=== PATIENT | female | born 1930 | race Two or more races ===

== ENCOUNTER 2018-01-17 14:19 | Inpatient (IN) | payer MEDICARE, OTHER ==
[~2018-01-17] VITALS: Ht 157.5 cm; Wt 72.6 kg
[2018-01-17 17:10] VITALS: BP 147/81
[2018-01-17] MEDS ORDERED: Z GUARD REMEDY PASTE 57 GM TUBE TOP PRN (17:30)
[2018-01-17] MEDS ORDERED: HEPA100D33 SUBCUT (18:46)
[2018-01-17] MEDS ORDERED: POLY17PO4 PO (18:46)
[2018-01-17] MEDS ORDERED: ATOR20TA PO (18:46)
[2018-01-17] MEDS ORDERED: CEFT1FRO2 IV (18:46)
[2018-01-17] MEDS ORDERED: SENN-167 PO (18:46)
[2018-01-17] MEDS ORDERED: BISA10SU8 RC (18:46)
[2018-01-17] MEDS ORDERED: SODI1TAB3 PO (18:46)
[2018-01-17] MEDS ORDERED: BENA20TA9 PO (18:46)
[2018-01-17] MEDS ORDERED: BISA5TAB10 PO (18:46)
[2018-01-17] MEDS ORDERED: LEVE500T20 PO (18:46)
[2018-01-17] MEDS ORDERED: DOCU100T2 PO (18:46)
[2018-01-17] MEDS ORDERED: PROP10TA10 PO (18:46)
[2018-01-17] MEDS ORDERED: PANT40TA4 PO (18:46)
[2018-01-17 19:30] VITALS: BP 139/72
[2018-01-17] MEDS ORDERED: MIRALAX 17 GM POWD.PACK PO PRN (19:45)
[2018-01-17] MEDS ORDERED: SENNOSIDES 1 TABLET PO PRN (19:45)
[2018-01-17] MEDS ORDERED: BISACODYL 10 MG SUPP.RECT RC PRN (19:45)
[2018-01-17] MEDS: LEVETIRACETAM 500 MG TABLET PO SCH (21:20)
[2018-01-17] MEDS: DOCUSATE SODIUM 100 MG CAPSULE PO SCH (21:20)
[2018-01-17] MEDS: ATORVASTATIN 20 MG TABLET PO SCH (21:20)
[2018-01-17] MEDS: BENAZEPRIL HCL 10 MG TABLET PO SCH (21:42)
[2018-01-18 04:00] VITALS: BP 146/51
[2018-01-18 08:00] VITALS: BP 134/67
[2018-01-18] MEDS ORDERED: Medication Not On Formulary EA (Sodium Chloride 1 GM) PO SCH (09:00)
[2018-01-18] MEDS ORDERED: BENAZEPRIL HCL 20 MG TABLET PO SCH (09:00)
[2018-01-18] MEDS ORDERED: Medication Not On Formulary EA (Docusate Sodium 100 MG) PO SCH (09:00)
[2018-01-18] MEDS: DOCUSATE SODIUM 100 MG CAPSULE PO SCH ×2 (09:29→21:06)
[2018-01-18] MEDS: LEVETIRACETAM 500 MG TABLET PO SCH ×2 (09:29→21:06)
[2018-01-18] MEDS: SODIUM CHLORIDE 1,000 MG TABLET PO SCH ×3 (09:29→16:17)
[2018-01-18] MEDS: PANTOPRAZOLE SODIUM 40 MG TABLET.DR PO SCH (09:29)
[2018-01-18] MEDS: BENAZEPRIL HCL 10 MG TABLET PO SCH ×2 (09:29→21:07)
[2018-01-18] MEDS: CEFTRIAXONE 1 G in IV DEXTROSE 5% 50 ML IV SCH (09:40)
[2018-01-18] MEDS: ACETAMINOPHEN ES 500 MG TABLET PO PRN (11:34)
[2018-01-18 16:00] VITALS: BP 97/70
[2018-01-18 20:14] VITALS: BP 130/72
[2018-01-18] MEDS: ATORVASTATIN 20 MG TABLET PO SCH (21:06)
[2018-01-19 04:00] VITALS: BP 125/63
[2018-01-19 07:07] LABS: BASOPHILS # (AUTO) 0.1 K/uL (0.0-8.0); BASOPHILS % (AUTO) 0.9 % (0.0-2.0); EOSINOPHILS # (AUTO) 0.6 K/uL (0.0-0.7); EOSINOPHILS % (AUTO) 9.1 % (0.0-7.0); HEMATOCRIT 36.5 % (31.2-41.9); HEMOGLOBIN 12.3 g/dL (10.9-14.3); LYMPHOCYTES # (AUTO) 1.8 K/uL (20.0-40.0); LYMPHOCYTES % (AUTO) 27.7 % (20.5-51.5); MEAN CORPUSCULAR HEMOGLOBIN 28.5 uug (24.7-32.8); MEAN CORPUSCULAR HGB CONC 34 g/dL (32.3-35.6); MEAN CORPUSCULAR VOLUME 84.7 fL (75.5-95.3); MONOCYTES # (AUTO) 0.6 K/uL (2.0-10.0); MONOCYTES % (AUTO) 9.5 % (0.0-11.0); NEUTROPHILS # (AUTO) 3.3 K/uL (1.8-8.9); NEUTROPHILS % (AUTO) 52.8 % (38.5-71.5); PLATELET COUNT (AUTO) 271 K/uL (179-408); WHITE BLOOD COUNT (AUTO) 6.3 K/uL (3.8-11.8)
[2018-01-19 07:45] LABS: ALANINE AMINOTRANSFERASE 24 U/L (14-59); ALKALINE PHOSPHATASE 43 U/L (50-136); ASPARTATE AMINOTRANSFERASE 15 U/L (15-37); BILIRUBIN,TOTAL 0.4 mg/dL (0.2-1.0); CARBON DIOXIDE 29 mmol/L (21-32); CHLORIDE 96 mmol/L (98-107); CHOLESTEROL 131 mg/dL (<200); CREATININE 1.7 mg/dL (0.6-1.3); GLUCOSE 118 mg/dL (74-106); HDL CHOLESTEROL 52 mg/dL (40-60); PHOSPHOROUS 4.6 mg/dL (2.5-4.9); POTASSIUM 4.1 mmol/L (3.5-5.1); TOTAL PROTEIN, SERUM 6.7 g/dL (6.4-8.2); TRIGLYCERIDES 114 MG/DL (30-150); UREA NITROGEN, BLOOD 34 mg/dL (7-18)
[2018-01-19 08:00] VITALS: BP 142/57
[2018-01-19] MEDS: CEFTRIAXONE 1 G in IV DEXTROSE 5% 50 ML IV SCH (08:58)
[2018-01-19] MEDS: LEVETIRACETAM 500 MG TABLET PO SCH ×2 (08:59→20:56)
[2018-01-19] MEDS: BENAZEPRIL HCL 10 MG TABLET PO SCH ×2 (08:59→20:56)
[2018-01-19] MEDS: SODIUM CHLORIDE 1,000 MG TABLET PO SCH ×3 (09:00→17:37)
[2018-01-19] MEDS: DOCUSATE SODIUM 100 MG CAPSULE PO SCH ×2 (09:00→20:55)
[2018-01-19] MEDS: PANTOPRAZOLE SODIUM 40 MG TABLET.DR PO SCH (09:00)
[2018-01-19] MEDS: BISACODYL 5 MG TABLET.DR PO PRN (14:15)
[2018-01-19 16:00] VITALS: BP 127/55
[2018-01-19] MEDS: ACETAMINOPHEN ES 500 MG TABLET PO PRN (17:37)
[2018-01-19 19:30] VITALS: BP 127/79
[2018-01-19] MEDS: ATORVASTATIN 20 MG TABLET PO SCH (20:55)
[2018-01-20 04:00] VITALS: BP 132/57
[2018-01-20 08:00] VITALS: BP 123/78
[2018-01-20] MEDS: SODIUM CHLORIDE 1,000 MG TABLET PO SCH ×3 (08:58→17:40)
[2018-01-20] MEDS: DOCUSATE SODIUM 100 MG CAPSULE PO SCH ×2 (08:58→21:02)
[2018-01-20] MEDS: LEVETIRACETAM 500 MG TABLET PO SCH ×2 (08:58→21:02)
[2018-01-20] MEDS: PANTOPRAZOLE SODIUM 40 MG TABLET.DR PO SCH (08:59)
[2018-01-20] MEDS: BENAZEPRIL HCL 10 MG TABLET PO SCH ×2 (09:00→21:02)
[2018-01-20 16:00] VITALS: BP 126/70
[2018-01-20 20:28] VITALS: BP 117/59
[2018-01-20] MEDS: ATORVASTATIN 20 MG TABLET PO SCH (21:01)
[2018-01-21 06:45] VITALS: BP 143/52
[2018-01-21 08:00] VITALS: BP 134/58
[2018-01-21] MEDS: DOCUSATE SODIUM 100 MG CAPSULE PO SCH ×2 (08:43→20:55)
[2018-01-21] MEDS: LEVETIRACETAM 500 MG TABLET PO SCH ×2 (08:43→20:55)
[2018-01-21] MEDS: PANTOPRAZOLE SODIUM 40 MG TABLET.DR PO SCH (08:44)
[2018-01-21] MEDS: BENAZEPRIL HCL 10 MG TABLET PO SCH ×2 (08:44→20:56)
[2018-01-21] MEDS: SODIUM CHLORIDE 1,000 MG TABLET PO SCH ×3 (08:45→17:05)
[2018-01-21] MEDS: BISACODYL 5 MG TABLET.DR PO PRN (08:49)
[2018-01-21] MEDS: ACETAMINOPHEN ES 500 MG TABLET PO PRN (10:07)
[2018-01-21 16:42] VITALS: BP 124/63
[2018-01-21 19:41] VITALS: BP 138/78
[2018-01-21] MEDS: ATORVASTATIN 20 MG TABLET PO SCH (20:55)
[2018-01-22 05:00] VITALS: BP 140/62
[2018-01-22 07:39] VITALS: BP 162/57
[2018-01-22] MEDS: PANTOPRAZOLE SODIUM 40 MG TABLET.DR PO SCH (08:47)
[2018-01-22] MEDS: DOCUSATE SODIUM 100 MG CAPSULE PO SCH ×2 (08:47→20:52)
[2018-01-22] MEDS: LEVETIRACETAM 500 MG TABLET PO SCH ×2 (08:47→20:52)
[2018-01-22] MEDS: SODIUM CHLORIDE 1,000 MG TABLET PO SCH ×3 (08:48→16:22)
[2018-01-22] MEDS: BENAZEPRIL HCL 10 MG TABLET PO SCH ×2 (08:48→20:54)
[2018-01-22] MEDS: ACETAMINOPHEN ES 500 MG TABLET PO PRN (10:00)
[2018-01-22] MEDS ORDERED: ONDANSETRON HCL 4 MG TABLET PO PRN (10:30)
[2018-01-22 16:05] VITALS: BP 121/53
[2018-01-22 20:33] VITALS: BP 136/77
[2018-01-22] MEDS: ATORVASTATIN 20 MG TABLET PO SCH (20:52)
[2018-01-23 06:57] VITALS: BP 134/62
[2018-01-23 07:30] VITALS: BP 139/58
[2018-01-23] MEDS: DOCUSATE SODIUM 100 MG CAPSULE PO SCH ×2 (09:45→20:18)
[2018-01-23] MEDS: PANTOPRAZOLE SODIUM 40 MG TABLET.DR PO SCH (09:45)
[2018-01-23] MEDS: SODIUM CHLORIDE 1,000 MG TABLET PO SCH ×2 (09:46→17:47)
[2018-01-23] MEDS: LEVETIRACETAM 500 MG TABLET PO SCH ×2 (09:46→20:18)
[2018-01-23] MEDS: ACETAMINOPHEN ES 500 MG TABLET PO PRN (09:47)
[2018-01-23] MEDS: BENAZEPRIL HCL 10 MG TABLET PO SCH ×2 (09:47→20:53)
[2018-01-23 16:00] VITALS: BP 136/86
[2018-01-23] MEDS: ATORVASTATIN 20 MG TABLET PO SCH (20:18)
[2018-01-23 21:17] VITALS: BP 115/60
[2018-01-24 07:00] VITALS: BP 138/66
[2018-01-24 07:25] LABS: BASOPHILS # (AUTO) 0.1 K/uL (0.0-8.0); BASOPHILS % (AUTO) 1.4 % (0.0-2.0); EOSINOPHILS # (AUTO) 0.7 K/uL (0.0-0.7); HEMATOCRIT 34.1 % (31.2-41.9); HEMOGLOBIN 11.4 g/dL (10.9-14.3); LYMPHOCYTES # (AUTO) 1.6 K/uL (20.0-40.0); LYMPHOCYTES % (AUTO) 26.4 % (20.5-51.5); MEAN CORPUSCULAR HEMOGLOBIN 28.8 uug (24.7-32.8); MEAN CORPUSCULAR HGB CONC 34 g/dL (32.3-35.6); MEAN CORPUSCULAR VOLUME 86.1 fL (75.5-95.3); MONOCYTES # (AUTO) 0.5 K/uL (2.0-10.0); MONOCYTES % (AUTO) 7.6 % (0.0-11.0); NEUTROPHILS # (AUTO) 3.2 K/uL (1.8-8.9); NEUTROPHILS % (AUTO) 53.6 % (38.5-71.5); PLATELET COUNT (AUTO) 305 K/uL (179-408); RED BLOOD CELL COUNT(AUTO) 3.96 MIL/uL (3.63-4.92)
[2018-01-24 07:40] LABS: ALANINE AMINOTRANSFERASE 25 U/L (14-59); ALKALINE PHOSPHATASE 47 U/L (50-136); ASPARTATE AMINOTRANSFERASE 15 U/L (15-37); BILIRUBIN,TOTAL 0.2 mg/dL (0.2-1.0); CARBON DIOXIDE 27 mmol/L (21-32); CHLORIDE 104 mmol/L (98-107); CREATININE 1.2 mg/dL (0.6-1.3); GLUCOSE 110 mg/dL (74-106); MAGNESIUM 1.6 mg/dL (1.8-2.4); PHOSPHOROUS 3.6 mg/dL (2.5-4.9); POTASSIUM 4.2 mmol/L (3.5-5.1); TOTAL PROTEIN, SERUM 6.5 g/dL (6.4-8.2); UREA NITROGEN, BLOOD 21 mg/dL (7-18)
[2018-01-24] MEDS: BENAZEPRIL HCL 10 MG TABLET PO SCH ×2 (08:54→21:11)
[2018-01-24] MEDS: SODIUM CHLORIDE 1,000 MG TABLET PO SCH ×2 (08:55→16:52)
[2018-01-24] MEDS: PANTOPRAZOLE SODIUM 40 MG TABLET.DR PO SCH (08:55)
[2018-01-24] MEDS: LEVETIRACETAM 500 MG TABLET PO SCH ×2 (08:55→21:10)
[2018-01-24] MEDS: DOCUSATE SODIUM 100 MG CAPSULE PO SCH ×2 (08:56→21:10)
[2018-01-24] MEDS: ACETAMINOPHEN ES 500 MG TABLET PO PRN ×2 (09:05→15:45)
[2018-01-24] MEDS ORDERED: MAGNESIUM OXIDE 400 MG TABLET PO ONE (15:00)
[2018-01-24 16:00] VITALS: BP 140/80
[2018-01-24 19:30] VITALS: BP 138/73
[2018-01-24] MEDS: ATORVASTATIN 20 MG TABLET PO SCH (21:11)
[2018-01-25 04:00] VITALS: BP 146/61
[2018-01-25 08:31] LABS: BASOPHILS # (AUTO) 0.1 K/uL (0.0-8.0); BASOPHILS % (AUTO) 1.6 % (0.0-2.0); EOSINOPHILS # (AUTO) 0.6 K/uL (0.0-0.7); HEMOGLOBIN 11.5 g/dL (10.9-14.3); LYMPHOCYTES # (AUTO) 1.6 K/uL (20.0-40.0); LYMPHOCYTES % (AUTO) 26.2 % (20.5-51.5); MEAN CORPUSCULAR HEMOGLOBIN 28.9 uug (24.7-32.8); MEAN CORPUSCULAR HGB CONC 34 g/dL (32.3-35.6); MEAN CORPUSCULAR VOLUME 85.7 fL (75.5-95.3); MONOCYTES # (AUTO) 0.4 K/uL (2.0-10.0); MONOCYTES % (AUTO) 6.3 % (0.0-11.0); NEUTROPHILS # (AUTO) 3.5 K/uL (1.8-8.9); NEUTROPHILS % (AUTO) 55.9 % (38.5-71.5); PLATELET COUNT (AUTO) 307 K/uL (179-408); RED BLOOD CELL COUNT(AUTO) 3.97 MIL/uL (3.63-4.92); WHITE BLOOD COUNT (AUTO) 6.2 K/uL (3.8-11.8)
[2018-01-25 08:40] LABS: ALANINE AMINOTRANSFERASE 24 U/L (14-59); ALKALINE PHOSPHATASE 47 U/L (50-136); ASPARTATE AMINOTRANSFERASE 14 U/L (15-37); BILIRUBIN,TOTAL 0.2 mg/dL (0.2-1.0); CARBON DIOXIDE 29 mmol/L (21-32); CHLORIDE 104 mmol/L (98-107); CREATININE 1.3 mg/dL (0.6-1.3); GLUCOSE 111 mg/dL (74-106); MAGNESIUM 1.6 mg/dL (1.8-2.4); PHOSPHOROUS 3.9 mg/dL (2.5-4.9); POTASSIUM 4.2 mmol/L (3.5-5.1); TOTAL PROTEIN, SERUM 6.7 g/dL (6.4-8.2); UREA NITROGEN, BLOOD 24 mg/dL (7-18)
[2018-01-25] MEDS: DOCUSATE SODIUM 100 MG CAPSULE PO SCH ×2 (08:41→20:15)
[2018-01-25] MEDS: PANTOPRAZOLE SODIUM 40 MG TABLET.DR PO SCH (08:41)
[2018-01-25] MEDS: LEVETIRACETAM 500 MG TABLET PO SCH ×2 (08:41→20:16)
[2018-01-25] MEDS: SODIUM CHLORIDE 1,000 MG TABLET PO SCH ×2 (08:42→16:46)
[2018-01-25] MEDS: BENAZEPRIL HCL 10 MG TABLET PO SCH ×2 (08:46→20:16)
[2018-01-25 09:59] VITALS: BP 136/68
[2018-01-25] MEDS ORDERED: MAGNESIUM OXIDE 400 MG TABLET PO ONE (11:15)
[2018-01-25] MEDS: ACETAMINOPHEN ES 500 MG TABLET PO PRN (11:48)
[2018-01-25 15:41] VITALS: BP 153/89
[2018-01-25] MEDS: ATORVASTATIN 20 MG TABLET PO SCH (20:16)
[2018-01-25 20:46] VITALS: BP 119/69
[2018-01-26 05:00] VITALS: BP 159/65
[2018-01-26 07:44] VITALS: BP 160/68
[2018-01-26] MEDS: PANTOPRAZOLE SODIUM 40 MG TABLET.DR PO SCH (08:45)
[2018-01-26] MEDS: BENAZEPRIL HCL 10 MG TABLET PO SCH ×2 (08:45→20:55)
[2018-01-26] MEDS: LEVETIRACETAM 500 MG TABLET PO SCH ×2 (08:45→20:55)
[2018-01-26] MEDS: DOCUSATE SODIUM 100 MG CAPSULE PO SCH ×2 (08:45→20:55)
[2018-01-26] MEDS: SODIUM CHLORIDE 1,000 MG TABLET PO SCH ×2 (08:45→16:34)
[2018-01-26 16:32] VITALS: BP 127/68
[2018-01-26 20:34] VITALS: BP 136/54
[2018-01-26] MEDS: ATORVASTATIN 20 MG TABLET PO SCH (20:55)
[2018-01-27 05:20] VITALS: BP 155/83
[2018-01-27 08:00] VITALS: BP 150/78
[2018-01-27] MEDS: PANTOPRAZOLE SODIUM 40 MG TABLET.DR PO SCH (08:40)
[2018-01-27] MEDS: DOCUSATE SODIUM 100 MG CAPSULE PO SCH ×2 (08:40→20:57)
[2018-01-27] MEDS: SODIUM CHLORIDE 1,000 MG TABLET PO SCH ×2 (08:40→17:24)
[2018-01-27] MEDS: LEVETIRACETAM 250 MG TABLET PO SCH ×2 (08:40→20:57)
[2018-01-27] MEDS: BENAZEPRIL HCL 10 MG TABLET PO SCH ×2 (08:41→20:58)
[2018-01-27 16:00] VITALS: BP 128/57
[2018-01-27] MEDS: ATORVASTATIN 20 MG TABLET PO SCH (20:57)
[2018-01-27 21:01] VITALS: BP 134/74
[2018-01-28 05:25] VITALS: BP 147/58
[2018-01-28 07:30] VITALS: BP 150/85
[2018-01-28] MEDS: PANTOPRAZOLE SODIUM 40 MG TABLET.DR PO SCH (09:34)
[2018-01-28] MEDS: LEVETIRACETAM 250 MG TABLET PO SCH ×2 (09:34→21:26)
[2018-01-28] MEDS: DOCUSATE SODIUM 100 MG CAPSULE PO SCH ×2 (09:34→21:28)
[2018-01-28] MEDS: BENAZEPRIL HCL 10 MG TABLET PO SCH ×2 (09:35→21:25)
[2018-01-28] MEDS: SODIUM CHLORIDE 1,000 MG TABLET PO SCH ×2 (09:35→17:00)
[2018-01-28 16:00] VITALS: BP 164/78
[2018-01-28 20:34] VITALS: BP 148/68
[2018-01-28] MEDS ORDERED: BENAZEPRIL HCL 10 MG TABLET ONE (21:22)
[2018-01-28] MEDS: ATORVASTATIN 20 MG TABLET PO SCH (21:29)
[2018-01-29 05:05] VITALS: BP 163/72
[2018-01-29 07:30] VITALS: BP 161/81
[2018-01-29] MEDS: SODIUM CHLORIDE 1,000 MG TABLET PO SCH ×2 (08:21→17:29)
[2018-01-29] MEDS: LEVETIRACETAM 250 MG TABLET PO SCH ×2 (08:21→21:02)
[2018-01-29] MEDS: DOCUSATE SODIUM 100 MG CAPSULE PO SCH ×2 (08:21→21:03)
[2018-01-29] MEDS: PANTOPRAZOLE SODIUM 40 MG TABLET.DR PO SCH (08:22)
[2018-01-29] MEDS: BENAZEPRIL HCL 10 MG TABLET PO SCH ×2 (08:27→21:03)
[2018-01-29 15:00] VITALS: BP 132/57
[2018-01-29 15:01] VITALS: BP 143/65
[2018-01-29 15:02] VITALS: BP 146/74
[2018-01-29 19:30] VITALS: BP 142/71
[2018-01-29] MEDS: ATORVASTATIN 20 MG TABLET PO SCH (21:03)
[2018-01-30 04:20] VITALS: BP 167/86
[2018-01-30 07:30] VITALS: BP 161/97
[2018-01-30] MEDS: PANTOPRAZOLE SODIUM 40 MG TABLET.DR PO SCH (08:24)
[2018-01-30] MEDS: DOCUSATE SODIUM 100 MG CAPSULE PO SCH (08:24)
[2018-01-30] MEDS: LEVETIRACETAM 250 MG TABLET PO SCH (08:25)
[2018-01-30] MEDS: SODIUM CHLORIDE 1,000 MG TABLET PO SCH ×2 (08:25→16:59)
[2018-01-30] MEDS: BENAZEPRIL HCL 10 MG TABLET PO SCH (08:26)
[2018-01-30 16:00] VITALS: BP 135/82
== END 2018-01-30 17:42 | disposition home health service (06) | DRG 949 ==
PROVIDERS: ADMIT Physical Medicine & Rehabilitation Pain Medicine; ATTEND Physical Medicine & Rehabilitation Pain Medicine
DX: S06.5X9D Traumatic subdural hemorrhage with loss of consciousness of unspecified duration, subsequent encounter (principal); N17.0 Acute kidney failure with tubular necrosis; E44.0 Moderate protein-calorie malnutrition; N39.0 Urinary tract infection, site not specified; E22.2 Syndrome of inappropriate secretion of antidiuretic hormone; S01.01XD Laceration without foreign body of scalp, subsequent encounter; W19.XXXD Unspecified fall, subsequent encounter; E78.5 Hyperlipidemia, unspecified; I70.0 Atherosclerosis of aorta; K21.9 Gastro-esophageal reflux disease without esophagitis; K59.00 Constipation, unspecified; M16.12 Unilateral primary osteoarthritis, left hip; G44.309 Post-traumatic headache, unspecified, not intractable; F07.81 Postconcussional syndrome; I10 Essential (primary) hypertension; E11.9 Type 2 diabetes mellitus without complications; H81.10 Benign paroxysmal vertigo, unspecified ear
CPT/HCPCS: 36415; 70030-TC; 83735; 84100; 84443; 85025; 92523; 97110; 97112; 97116; 97530; 97535; A4663; A9150; J0696; J7060; Q0162

== ENCOUNTER 2019-03-26 11:35 | Inpatient (IN) | payer MEDICARE, OTHER ==
[~2019-03-26] VITALS: Ht 152.4 cm; Wt 77.6 kg
--- NOTE | 2019-03-26 11:46 | NUR ---
PT IS IN ROOM #1B. DR MAYO EVALUATED THE PT.
[2019-03-26 12:55] LABS: BASOPHILS % (AUTO) 0.5 % (0.0-2.0); EOSINOPHILS # (AUTO) 0.5 K/uL (0.0-0.7); EOSINOPHILS % (AUTO) 7.3 % (0.0-7.0); HEMATOCRIT 37.1 % (31.2-41.9); HEMOGLOBIN 12.3 g/dL (10.9-14.3); LYMPHOCYTES # (AUTO) 1.7 K/uL (20.0-40.0); LYMPHOCYTES % (AUTO) 25.4 % (20.5-51.5); MEAN CORPUSCULAR HEMOGLOBIN 28.3 uug (24.7-32.8); MEAN CORPUSCULAR HGB CONC 33 g/dL (32.3-35.6); MEAN CORPUSCULAR VOLUME 85.3 fL (75.5-95.3); MONOCYTES # (AUTO) 0.5 K/uL (2.0-10.0); MONOCYTES % (AUTO) 6.8 % (0.0-11.0); PLATELET COUNT (AUTO) 272 K/uL (179-408); RED BLOOD CELL COUNT(AUTO) 4.35 MIL/uL (3.63-4.92); WHITE BLOOD COUNT (AUTO) 6.6 K/uL (3.8-11.8)
[2019-03-26 13:02] LABS: CARBON DIOXIDE 29 mmol/L (21-32); CHLORIDE 96 mmol/L (98-107); CREATININE 1.6 mg/dL (0.6-1.3); GLUCOSE 104 mg/dL (74-106); POTASSIUM 4.3 mmol/L (3.5-5.1); UREA NITROGEN, BLOOD 29 mg/dL (7-18)
[2019-03-26 13:07] LABS: CHOLESTEROL 160 mg/dL (<200); HDL CHOLESTEROL 52 mg/dL (40-60); TRIGLYCERIDES 92 MG/DL (30-150)
[2019-03-26] MEDS ORDERED: ASPIRIN 325 MG TABLET PO ONE (14:00)
[2019-03-26] MEDS ORDERED: BENAZEPRIL HCL 10 MG TABLET PO ONE (14:00)
[2019-03-26] MEDS ORDERED: ASPIRIN 325 MG TABLET ONE (14:08)
[2019-03-26] MEDS ORDERED: BENAZEPRIL HCL 10 MG TABLET ONE (14:09)
--- NOTE | 2019-03-26 14:28 | NUR ---
REPORT WAS GIVEN TO SPORTS TEAM MANAGER. PT WAS TRANSFERD TO ROOM #324.
[2019-03-26] MEDS ORDERED: HYDROCODONE/APAP 5-325MG TABLET PO PRN (14:45)
[2019-03-26] MEDS ORDERED: Z GUARD REMEDY PASTE 57 GM TUBE TOP PRN (14:45)
[2019-03-26] MEDS ORDERED: ZOLPIDEM 5 MG TABLET PO PRN (14:45)
[2019-03-26] MEDS ORDERED: MAGNESIUM HYDROXIDE 30 ML LIQUID UDC PO PRN (14:45)
[2019-03-26 15:37] VITALS: BP 161/68
[2019-03-26] MEDS: IV 1/2NS 1000 ML 1,000 ML IV PRN (16:03)
--- NOTE | 2019-03-26 19:21 | NUR ---
Patient admitted from ER around 1435 with no signs of distress; patient in stable condition ; MD multiple diagnostic test . Patient calm and compliant ; patient with stable vital sings; patient son by bedside during admission; Report given to oncoming nurse.
[2019-03-26 20:00] VITALS: BP 141/76
--- NOTE | 2019-03-27 01:28 | NUR ---
patient BP at 171/66. Jason Wren contacted. new orders received. Norvasc 5mg daily, start now. will administer and f/u with patients BP.
[2019-03-27] MEDS: AMLODIPINE 5 MG TABLET PO SCH ×2 (01:49→10:48)
[2019-03-27 05:00] VITALS: BP 157/67
[2019-03-27] MEDS: IV 1/2NS 1000 ML 1,000 ML IV PRN (05:52)
[2019-03-27 06:31] LABS: BASOPHILS # (AUTO) 0.1 K/uL (0.0-8.0); EOSINOPHILS # (AUTO) 0.6 K/uL (0.0-0.7); EOSINOPHILS % (AUTO) 10.3 % (0.0-7.0); HEMATOCRIT 36.8 % (31.2-41.9); HEMOGLOBIN 12.2 g/dL (10.9-14.3); LYMPHOCYTES # (AUTO) 1.6 K/uL (20.0-40.0); LYMPHOCYTES % (AUTO) 27.6 % (20.5-51.5); MEAN CORPUSCULAR HEMOGLOBIN 27.9 uug (24.7-32.8); MEAN CORPUSCULAR HGB CONC 33 g/dL (32.3-35.6); MONOCYTES # (AUTO) 0.5 K/uL (2.0-10.0); MONOCYTES % (AUTO) 8.1 % (0.0-11.0); NEUTROPHILS # (AUTO) 3.1 K/uL (1.8-8.9); PLATELET COUNT (AUTO) 280 K/uL (179-408); RED BLOOD CELL COUNT(AUTO) 4.38 MIL/uL (3.63-4.92); WHITE BLOOD COUNT (AUTO) 5.8 K/uL (3.8-11.8)
[2019-03-27 06:50] LABS: THYROID STIMULATING HORMONE 2.042 mIU/mL (0.358-3.740)
[2019-03-27 06:52] LABS: CREATININE 1.3 mg/dL (0.6-1.3); MAGNESIUM 1.6 mg/dL (1.8-2.4); PHOSPHOROUS 3.9 mg/dL (2.5-4.9); POTASSIUM 3.8 mmol/L (3.5-5.1)
--- NOTE | 2019-03-27 08:00 | NUR ---
PATIENT RECEIVED FROM CHARGE NURSE, BED IN LOW POSITION, SIDE RAILS UP X2. CALL LIGHT IN REACH, ALL NEEDS MET AT THIS TIME.
[2019-03-27] MEDS ORDERED: SWABABLE VALVE TRANSFER SET EA MC ONE (09:17)
[2019-03-27] MEDS ORDERED: IOHEXOL 350 100 ML INFUS..BTL ONE (09:17)
[2019-03-27] MEDS ORDERED: IV NORMAL SALINE 250 ML IV ONE (09:17)
[2019-03-27] MEDS: ASPIRIN 81 MG TAB.CHEW PO SCH (10:47)
[2019-03-27] MEDS: BENAZEPRIL HCL 20 MG TABLET PO SCH (10:48)
[2019-03-27] MEDS: ATENOLOL 50 MG TABLET PO SCH (10:49)
[2019-03-27 12:08] VITALS: BP 147/69
[2019-03-27] MEDS: MAGNESIUM SULFATE/D5W 100 ML IV SCH ×2 (16:33→18:12)
[2019-03-27 17:24] VITALS: BP 135/54
--- NOTE | 2019-03-27 18:23 | NUR ---
PATIENT HAS BEEN COOPERATIVE WITH CARE. SHE WENT TO MRI AT [facility] AND RETURNED. PATIENT HAS BEEN SEEN BY ST, PT AND OT TODAY. PATIENT IS NOW AMBULATING WITH WALKER TO BATHROOM AND STANDBY ASSIST. ALL NEEDS MET THROUGHOUT SHIFT.
[2019-03-27 20:07] VITALS: BP 163/72
[2019-03-27] MEDS: hydrALAZINE HCL 20 MG/1 ML VIAL IV PRN (20:50)
[2019-03-28 00:02] VITALS: BP 146/48
[2019-03-28 04:03] VITALS: BP 168/75
[2019-03-28] MEDS: IV 1/2NS 1000 ML 1,000 ML IV PRN ×2 (04:11→18:00)
--- NOTE | 2019-03-28 05:38 | NUR ---
patient received lying in bed with daughter at bedside. no sign of acute distress and v/s stable throughout shift. BP >160 at beginning of shift hydralazine administered and BP monitored throughout shift. BP high x2 at morning vitals. will administer hydralazine and monitor. c/o of insomnia and ambien administered. tolerated well. safety and comfort measures provided. bed in lowest position, side rails up x2, bed alarm on. will continue to monitor and monitor patient.
[2019-03-28] MEDS: hydrALAZINE HCL 20 MG/1 ML VIAL IV PRN (05:43)
[2019-03-28 06:29] LABS: BASOPHILS # (AUTO) 0.1 K/uL (0.0-8.0); BASOPHILS % (AUTO) 0.8 % (0.0-2.0); EOSINOPHILS # (AUTO) 0.7 K/uL (0.0-0.7); EOSINOPHILS % (AUTO) 10.5 % (0.0-7.0); HEMATOCRIT 35.9 % (31.2-41.9); HEMOGLOBIN 12.3 g/dL (10.9-14.3); LYMPHOCYTES # (AUTO) 1.6 K/uL (20.0-40.0); LYMPHOCYTES % (AUTO) 23.6 % (20.5-51.5); MEAN CORPUSCULAR HEMOGLOBIN 28.7 uug (24.7-32.8); MEAN CORPUSCULAR HGB CONC 34 g/dL (32.3-35.6); MEAN CORPUSCULAR VOLUME 84.2 fL (75.5-95.3); MONOCYTES # (AUTO) 0.5 K/uL (2.0-10.0); MONOCYTES % (AUTO) 7.5 % (0.0-11.0); NEUTROPHILS # (AUTO) 3.8 K/uL (1.8-8.9); NEUTROPHILS % (AUTO) 57.6 % (38.5-71.5); PLATELET COUNT (AUTO) 298 K/uL (179-408); RED BLOOD CELL COUNT(AUTO) 4.27 MIL/uL (3.63-4.92); WHITE BLOOD COUNT (AUTO) 6.6 K/uL (3.8-11.8)
--- NOTE | 2019-03-28 06:37 | NUR ---
BP rechecked after administration of hydralazine. stable. 139/72 patient has c/o of headache. temperature checked. afebrile. will administer tylenol and f/u with patient.
[2019-03-28 06:48] LABS: ALANINE AMINOTRANSFERASE 13 U/L (14-59); ALKALINE PHOSPHATASE 35 U/L (50-136); ASPARTATE AMINOTRANSFERASE 11 U/L (15-37); BILIRUBIN,TOTAL 0.5 mg/dL (0.2-1.0); CARBON DIOXIDE 28 mmol/L (21-32); CHLORIDE 98 mmol/L (98-107); CREATINE KINASE, TOTAL 68 U/L (26-192); CREATININE 1.4 mg/dL (0.6-1.3); GLUCOSE 123 mg/dL (74-106); PHOSPHOROUS 3.1 mg/dL (2.5-4.9); POTASSIUM 3.9 mmol/L (3.5-5.1); TOTAL PROTEIN, SERUM 6.7 g/dL (6.4-8.2); UREA NITROGEN, BLOOD 22 mg/dL (7-18)
[2019-03-28] MEDS: ACETAMINOPHEN 325 MG TABLET PO PRN ×2 (06:49→15:48)
[2019-03-28] MEDS: ASPIRIN 81 MG TAB.CHEW PO SCH (08:08)
[2019-03-28] MEDS: AMLODIPINE 5 MG TABLET PO SCH (08:16)
[2019-03-28] MEDS: ATENOLOL 50 MG TABLET PO SCH (08:16)
[2019-03-28] MEDS: BENAZEPRIL HCL 20 MG TABLET PO SCH (08:16)
[2019-03-28] MEDS: ONDANSETRON 4 MG/2 ML VIAL IV PRN ×2 (08:56→15:55)
[2019-03-28 11:32] VITALS: BP 123/46
[2019-03-28 16:00] VITALS: BP 148/66
--- NOTE | 2019-03-28 17:15 | NUR ---
Patient alert and oriented, ambulatory with assist and walker. Mild BLE weakness. On tele sinus rhythm. Zofran PRN given for n/v this morning. Video swallow planned for tomorrow.PRN tylenol for headache. Seen by PT and ST refer to note.
[2019-03-28 19:56] VITALS: BP 101/53
[2019-03-28] MEDS ORDERED: LORAZEPAM 2 MG/1 ML VIAL IV PRN (20:30)
[2019-03-28] MEDS ORDERED: METOCLOPRAMIDE HCL 10 MG/2 ML VIAL IV PRN ×2 (20:30→21:00)
--- NOTE | 2019-03-28 20:30 | NUR ---
Patient c/o unrelieved nausea, n.o from [facility] [employer] for [facility] xray and Reglan 10mg IV Q8 PRN may alternate w/ Zofran. Also patient noted w/ episode of shaking especially on her legs, n.o for Ativan 1mg Q6 PRN. Son at bedside made aware of new orders
[2019-03-28] MEDS ORDERED: METOCLOPRAMIDE HCL 10 MG/2 ML VIAL IV SCH (22:00)
[2019-03-29 00:06] VITALS: BP 117/43
[2019-03-29 04:05] VITALS: BP 145/57
--- NOTE | 2019-03-29 06:35 | NUR ---
Patient slept well. No complaints of pain at this time. SR on Tele monitor. IV site on R hand intact and patent w/ IVF infusing. All needs attended. Will endorse accordingly
[2019-03-29 06:52] LABS: BASOPHILS % (AUTO) 0.7 % (0.0-2.0); EOSINOPHILS # (AUTO) 0.7 K/uL (0.0-0.7); EOSINOPHILS % (AUTO) 10.5 % (0.0-7.0); HEMATOCRIT 37.3 % (31.2-41.9); HEMOGLOBIN 12.4 g/dL (10.9-14.3); LYMPHOCYTES # (AUTO) 1.7 K/uL (20.0-40.0); LYMPHOCYTES % (AUTO) 24.8 % (20.5-51.5); MEAN CORPUSCULAR HEMOGLOBIN 28.3 uug (24.7-32.8); MEAN CORPUSCULAR HGB CONC 33 g/dL (32.3-35.6); MEAN CORPUSCULAR VOLUME 85.2 fL (75.5-95.3); MONOCYTES # (AUTO) 0.5 K/uL (2.0-10.0); MONOCYTES % (AUTO) 7.3 % (0.0-11.0); NEUTROPHILS # (AUTO) 3.8 K/uL (1.8-8.9); NEUTROPHILS % (AUTO) 56.7 % (38.5-71.5); PLATELET COUNT (AUTO) 304 K/uL (179-408); RED BLOOD CELL COUNT(AUTO) 4.37 MIL/uL (3.63-4.92); WHITE BLOOD COUNT (AUTO) 6.7 K/uL (3.8-11.8)
[2019-03-29] MEDS: IV 1/2NS 1000 ML 1,000 ML IV PRN (06:54)
[2019-03-29 07:13] LABS: BILIRUBIN,TOTAL 0.6 mg/dL (0.2-1.0); CREATININE 1.3 mg/dL (0.6-1.3); MAGNESIUM 2.2 mg/dL (1.8-2.4); PHOSPHOROUS 3.1 mg/dL (2.5-4.9); POTASSIUM 4.4 mmol/L (3.5-5.1)
[2019-03-29] MEDS: AMLODIPINE 5 MG TABLET PO SCH (08:46)
[2019-03-29] MEDS: BENAZEPRIL HCL 20 MG TABLET PO SCH (08:46)
[2019-03-29] MEDS: ATENOLOL 50 MG TABLET PO SCH (08:46)
[2019-03-29] MEDS: ASPIRIN 81 MG TAB.CHEW PO SCH (08:46)
[2019-03-29 09:06] LABS: ALBUMIN 3.1 g/dL (2.9-4.4); ALPHA-1-GLOBULIN 0.2 g/dL (0.0-0.4); ALPHA-2-GLOBULIN 0.7 g/dL (0.4-1.0); GAMMA GLOBULIN 1.1 g/dL (0.4-1.8); M-SPIKE Not Observed g/dL (Not Observed)
[2019-03-29 11:54] VITALS: BP 142/74
[2019-03-29] MEDS ORDERED: BARIUM SULFATE 240 ML ORAL.SUSP PO ONE (14:00)
[2019-03-29] MEDS ORDERED: BARIUM SULFATE 148 GM SUSP.RECON PO ONE (14:00)
[2019-03-29 15:47] VITALS: BP 145/65
[2019-03-29 17:01] LABS: *BILIRUBIN,URIN NEGATIVE (NEGATIVE); *BLOOD, URINE NEGATIVE (NEGATIVE); *CLARITY,URINE SLIGHTLY CLOUDY (CLEAR); *KETONES,URINE NEGATIVE (NEGATIVE); *UROBILINOGEN,URINE 0.2 E.U./dl (NORMAL); LEUKOCYTE ESTERASE ,URINE 2+ (NEGATIVE); NITRITE, URINE NEGATIVE (NEGATIVE); UGLUCOSE NEGATIVE (NEGATIVE)
--- NOTE | 2019-03-29 17:47 | NUR ---
Discharge instructions reviewed with patient and son at bedside, questions and concerns addressed. Discharge medication discussed with son, will machine pecan picker at [facility] pharmacy once they leave. Stroke education given, verbalized understanding. No distress noted. Stable, ambulatory with assist. Home health discussed at bedside, resources provided. Educated to follow up with neurosurgeon. IV access and wristband removed.
[2019-03-29 17:57] LABS: *CREATININE,URINE 25.3 mg/dL (30-125); *URINE TOTAL PROTEIN RANDOM 45.3 mg/dL (<150/24HR)
[2019-03-29 18:00] LABS: *COLOR,URINE YELLOW (YELLOW)
[2019-03-29 18:01] LABS: BACTERIA,URINE MANY /HPF (NONE SEEN); SQUAMOUS EPITHELIAL CELL,UR FEW /HPF (NONE SEEN); WBC,URINE 80-100 /HPF (0-3)
== END 2019-03-29 18:06 | disposition home health service (06) | DRG 73 ==
LOC: ER 11:35 → TELE3 14:16 → MEDSURG3 03-29 08:47
PROVIDERS: ADMIT Student in an Organized Health Care Education/Training Program; ATTEND Student in an Organized Health Care Education/Training Program
DX: G62.9 Polyneuropathy, unspecified (principal); N17.0 Acute kidney failure with tubular necrosis; B02.7 Disseminated zoster; E87.1 Hypo-osmolality and hyponatremia; E44.0 Moderate protein-calorie malnutrition; I50.32 Chronic diastolic (congestive) heart failure; M47.812 Spondylosis without myelopathy or radiculopathy, cervical region; M51.16 Intervertebral disc disorders with radiculopathy, lumbar region; R20.2 Paresthesia of skin; R26.2 Difficulty in walking, not elsewhere classified; E78.5 Hyperlipidemia, unspecified; Z87.820 Personal history of traumatic brain injury; E83.42 Hypomagnesemia; E86.0 Dehydration; K21.9 Gastro-esophageal reflux disease without esophagitis; G83.14 Monoplegia of lower limb affecting left nondominant side; R40.2252 Coma scale, best verbal response, oriented, at arrival to emergency department; R40.2362 Coma scale, best motor response, obeys commands, at arrival to emergency department; R40.2142 Coma scale, eyes open, spontaneous, at arrival to emergency department; M48.07 Spinal stenosis, lumbosacral region; M43.16 Spondylolisthesis, lumbar region; E11.9 Type 2 diabetes mellitus without complications; I35.8 Other nonrheumatic aortic valve disorders; M19.90 Unspecified osteoarthritis, unspecified site; K59.00 Constipation, unspecified; I11.0 Hypertensive heart disease with heart failure; I67.2 Cerebral atherosclerosis; M48.061 Spinal stenosis, lumbar region without neurogenic claudication; M54.16 Radiculopathy, lumbar region; R13.10 Dysphagia, unspecified; N28.1 Cyst of kidney, acquired; M85.80 Other specified disorders of bone density and structure, unspecified site; M25.78 Osteophyte, vertebrae; G89.29 Other chronic pain
CPT/HCPCS: 36415; 70030-TC; 70450; 70496; 72131; 72148; 74018; 74230; 76770; 83735; 83970; 84100; 84155; 84156; 84165; 84300; 84443; 85025; 85730; 87077; 87086; 93005; 93307; 93880; A4663; G0378; J0360; J2060; J2405; J2765; J3475; J3490; J7050; Q9967